=== PATIENT | female | born 1995 | race Caucasian/White ===

== ENCOUNTER 2017-05-18 19:17 | Observation (INO) ==
[2017-05-18 21:40] LABS: Bilirubin,Urine Negative (Negative); Blood,Urine Negative (Negative); Clarity,Urine Clear (Clear); Color,Urine Yellow (Yellow); Glucose,Urine (UA) Normal (Normal); Ketones,Urine Negative (Negative); Leukocyte Esterase,Urine Small (Negative); Nitrite,Urine Negative (Negative); PH,Urine 6.5 pH Units (5.0-8.0); Protein,Urine Negative (Neg-Trace); Specific Gravity,Urine 1.008 (1.010-1.025); Urobilinogen,Urine Normal (Normal)
[2017-05-18 21:43] LABS: Bacteria,Urine None Seen per hpf (None-Few); Hyaline Casts,Urine None Seen per lpf (None-Few); RBC,Urine 0-3 per hpf (0-3); Squamous Epithelial Cell,Urine Many per lpf (None-Few)
[2017-05-18 21:45] LABS: Amphetamine Screen,Urine Negative ng/mL (Cutoff=1000); Barbiturate Screen,Urine Negative ng/mL (Cutoff=200); Benzodiazepines Screen,Urine Negative ng/mL (Cutoff=200); Cannabinoid Screen,Urine Negative ng/mL (Cutoff = 50); Cocaine Screen,Urine Negative ng/mL (Cutoff= 300); Opiate Screen,Urine Negative ng/mL (Cutoff=300); Phencyclidine Screen,Urine Negative ng/mL (Cutoff=25)
--- NOTE | 2017-05-18 22:51 | OB/GYN Progress Note ---
Date of Encounter: 05/18/17 Time of Encounter: 22:00 - Assessment and Plan (1) False labor Current Visit: Yes Status: Acute SVE unchanged on repeat exam per RN. NST reactive. Discharge home with precautions. (2) 36 weeks gestation of Current Visit: No Status: Acute Subjective - Subjective Interval history: 21 year-old presenting at 36w4d with c/o contractions. She denies any other complaints. Good FM. Antepartum ROS: movement normal, contractions, no loss of fluid, no vaginal bleeding Objective - Vital Signs Vital Signs: Intake and Output 05/18/17 05/18/17 05/18/17 07:59 15:59 23:59 Other: Weight 74.5 kg Patient Weight 05/18/17 23:59 Weight 74.5 kg - Exam FHR: category 1 FHR comments: NST reactive Abdomen: Present: gravid Uterus: Present: normal Cervical dilation: 3-4 - Labs Labs: Abnormal lab results Ur Specific [place] 1.008 (1.010-1.025) L 05/18/17 19:48 Ur Leukocyte Esterase Small (Negative) H 05/18/17 19:48 Urine Microscopic WBC 5-15 per hpf (0-3) H 05/18/17 19:48 Ur Squamous Epith Cells Many per lpf (None-Few) H 05/18/17 19:48
== END 2017-05-18 22:13 | disposition home or self-care (01) ==
LOC: 1NENULAB
PROVIDERS: ADMIT Obstetrics & Gynecology; ATTEND Obstetrics & Gynecology

== ENCOUNTER 2017-05-25 22:05 | Observation (INO) ==
[2017-05-25 22:53] LABS: Bilirubin,Urine Negative (Negative); Blood,Urine Negative (Negative); Clarity,Urine Cloudy (Clear); Color,Urine Yellow (Yellow); Glucose,Urine (UA) Normal (Normal); Ketones,Urine Negative (Negative); Leukocyte Esterase,Urine Moderate (Negative); Nitrite,Urine Negative (Negative); PH,Urine 6.5 pH Units (5.0-8.0); Protein,Urine Negative (Neg-Trace); Specific Gravity,Urine 1.013 (1.010-1.025); Urobilinogen,Urine Normal (Normal)
[2017-05-25 22:54] LABS: Bacteria,Urine Few per hpf (None-Few); Hyaline Casts,Urine None Seen per lpf (None-Few); RBC,Urine 0-3 per hpf (0-3); Squamous Epithelial Cell,Urine Many per lpf (None-Few); WBC,Urine 30-50 per hpf (0-3)
--- NOTE | 2017-05-26 | OB/GYN Progress Note ---
Date of Encounter: 05/26/17 Time of Encounter: 23:45 - Assessment and Plan (1) 37 weeks gestation of Status: Resolved (2) Uterine contractions Status: Acute No change on serial cervical exams. Discharge home with when to return to triage and labor precautions Patient verbalizes understanding. Subjective - Subjective Principal diagnosis: Labor Evaluation Interval history: Ms. Green is a 21-year-old 001 at 37 weeks and 4 days who presents to labor and delivery for contractions throughout the day. She reports that contractions started when she woke up this a.m. and gradually worsened. Currently contractions occur every 4-5 minutes for the last hour. She reports that contractions goes towards her back. She reports good movement, denies leaking of fluid, vaginal bleeding. She admits to chronic headaches, denies visual disturbances, chest pain, shortness of breath, epigastric pain, lower extremity edema, dysuria. She receives care with Dr. Carmona., maternal blood type O-, history of labor on Tasha. Blood type: O- GBS: negative Hepatitis B Antigen: nonreactive HIV Antibody Ag: nonreactive T. Pallidum: negative Rubella IgG: positive Varicella IgG: positive Antepartum ROS: movement normal, contractions, no loss of fluid, no vaginal bleeding Objective - Vital Signs Vital Signs: Intake and Output 05/25/17 05/25/17 05/25/17 07:59 15:59 23:59 Other: Weight 75.9 kg Patient Weight 05/25/17 23:59 Weight 75.9 kg - Exam FHR: auscultation normal FHR comments: Baseline 135 Auscultation: bilateral: normal Abdomen: Present: soft, gravid Uterus: Present: normal, firm, other (nontender) Cervical dilation: 480 - Labs Labs: Abnormal lab results Urine Clarity Cloudy (Clear) A 05/25/17 22:49 Ur Leukocyte Esterase Moderate (Negative) H 05/25/17 22:49 Urine Microscopic WBC 30-50 per hpf (0-3) H 05/25/17 22:49 Ur Squamous Epith Cells Many per lpf (None-Few) H 05/25/17 22:49
== END 2017-05-26 00:39 | disposition home or self-care (01) ==
LOC: 1NENULAB
PROVIDERS: ADMIT Student in an Organized Health Care Education/Training Program; ATTEND Student in an Organized Health Care Education/Training Program

== ENCOUNTER 2017-05-31 16:22 | Observation (INO) ==
--- NOTE | 2017-05-31 23:38 | OB/GYN Progress Note ---
Date of Encounter: 05/31/17 Time of Encounter: 23:35 - Assessment and Plan (1) 38 weeks gestation of Status: Acute (2) NST (non-stress test) reactive Status: Acute (3) False labor Status: Acute SVE with no change after multiple exams. FHT reactive. Discharge home with precautions. Subjective - Subjective Interval history: 21 year-old female presenting at 38 weeks with c/o uterine contractions. She denies LOF or VB. Good FM. No other complaints. Antepartum ROS: movement normal, contractions, no loss of fluid, no vaginal bleeding Objective - Vital Signs Vital Signs: Intake and Output 05/31/17 05/31/17 05/31/17 07:59 15:59 23:59 Other: Weight 76 kg Patient Weight 05/31/17 23:59 Weight 76 kg - Exam FHR: category 1 FHR comments: NST reactive Abdomen: Present: soft, gravid. Absent: tenderness Uterus: Absent: tenderness Cervical dilation: 3-4 per clinical staff educator with no plant changer multiple exams
== END 2017-05-31 23:29 | disposition home or self-care (01) ==
LOC: 1NENULAB
PROVIDERS: ADMIT Obstetrics & Gynecology; ATTEND Obstetrics & Gynecology

== ENCOUNTER 2017-06-06 08:00 | Inpatient (IN) ==
--- NOTE | 2017-06-06 10:34 | Anesthesia Evaluation PreOp ---
Date of Encounter: 06/06/17 Time of Encounter: 10:31 - Past History Planned Operation: vaginal del, induction Cardiac History: Denies any Significant Hx Pulmonary History: Denies Any Significant HX TEMPLE MARKER History: Denies Any Significant HX Other Medical History: Denies Any Significant HX Anesthesia History: No Prior Anesthetic Complications, Past Anesthesia Alcohol Use: none Drug use: none Medications and Allergies Formula Tablet 1 tab PO DAILY 06/05/15 [History] Ondansetron ODT [Zofran ODT] 4 mg SL Q6HR #14 tab.rapdis 07/18/15 [Rx] Acetaminophen [Tylenol] 1 tab PO PRN PRN 05/18/17 [History] 3 Allergy/AdvReac Type Severity Reaction Status Date / Time No Known Allergies Allergy Verified 05/18/17 19:39 Anesthesia Exam - HEENT Pupil (Motor): Pupils equal Mallampati: II Teeth: Normal Oral Opening: Greater than 3 - TEMPLE MARKER LOC: Oriented TEMPLE MARKER Motor: Normal RUE, Normal LUE, Normal RLE, Normal LLE, Normal Face TEMPLE MARKER Sensory: Normal: RUE, LUE, RLE, LLE, Face - Cardiac Rhythm: Regular Murmur: None - Pulmonary Breath Sounds: bilateral Clear Respiratory Effort: Symmetrical Anesthesia Assess/Plan ASA Score: 2 Modified [place] Scale for Level of Consciousness: Cooperative, oriented, and tranquil Anesthetic Plan: General, Regional Monitoring Plan: Standard Monitors Recovery Plan: PACU
[2017-06-06] MEDS ORDERED: Epidural Premix (fent/bupiv) 110 ML EP SCH (10:45)
[2017-06-06] MEDS ORDERED: Naloxone 0.4 MG/ML INJ IVP PRN (11:00)
[2017-06-06] MEDS ORDERED: *HR* Nalbuphine 20 MG/ML AMPUL IVP PRN (11:00)
[2017-06-06] MEDS ORDERED: Metoclopramide 10 MG/2 ML VIAL IVP PRN (11:00)
[2017-06-06] MEDS ORDERED: Ondansetron 4 MG/2 ML VIAL IVP PRN (11:00)
[2017-06-06] MEDS ORDERED: Ringers Solution, Lactated 1,000 ML IVC SCH (11:00)
[2017-06-06] MEDS ORDERED: miSOPROStol 25 MCG TABLET PO PRN (11:00)
[2017-06-06] MEDS ORDERED: Lidocaine 1% 20 ML MDV ID PRN (11:00)
[2017-06-06] MEDS ORDERED: Famotidine 20 MG/2 ML VIAL IVP PRN (11:00)
[2017-06-06 11:21] LABS: Basophils # 0.1 K/mcL (0.0-0.2); Basophils % 0.6 %; Eosinophils # 0.3 K/mcL (0.0-0.6); Eosinophils % 2.7 %; Hematocrit 35.5 % (35.3-44.9); Hemoglobin 11.8 g/dL (11.5-15.4); Immature Granulocytes % 0.6 % (0-4); Lymphocytes # 1.7 K/mcL (0.6-4.6); Lymphocytes % 13.9 %; Mean Corpuscular HGB Conc 33.2 g/dL (31.6-35.5); Mean Corpuscular Volume 84.3 fL (83.0-100.0); Mean Platelet Volume 11.7 fL (9.4-12.4); Monocytes # 1.1 K/mcL (0.0-1.3); Monocytes % 8.6 %; Platelet Count 155 K/mcL (140-400); Red Blood Count 4.21 M/mcL (3.82-4.97); Red Cell Distribution Width 13.3 % (11.5-14.5); Segmented Neutrophils % 73.6 %
[2017-06-06] MEDS ORDERED: Oxytocin 20 units/ LR 1000 mL 20 UNIT/1,000 ML BAG IVC SCH ×3 (11:30→18:41)
[2017-06-06] MEDS ORDERED: Epidural Premix (fent/bupiv) 110 ML EP ONE (11:31)
--- NOTE | 2017-06-06 12:38 | Anesthesia Procedures ---
Date of Encounter: 06/06/17 Time of Encounter: 12:23 Procedures: Anesthesia - Epidural/Spinal Patient ID/Chart reviewed: Yes Patient examined: Yes OB Eval: Gestational age: term OB Eval: : 2 OB Eval: Hx Para: 1 OB Eval: Contractions: Non-stressed pattern Consent Obtained: Yes Supplemental Oxygen: None/Room Air Site Prep: Aseptic Technique, Sterile prep and drape, 0.5% Chlorhexidine/Alcohol Patient position: upright Local Anesthetic: Lidocaine 1% Amount of Local Anesthetic used: 2 Touhy Needle Gauge: 18 Touhy Needle Depth (cm): 6 Catheter Depth at Skin (cm): 10 Test Dose (1.5% Lido + Epi): Volume given (mls): 3 Test Dose Result: Negative Loading Dose: Other: 10ml from solution Loading Dose Administered: Thru Catheter Infusion Med: 0.125% Bupivacaine w/ 2 mcg/ml Fentanyl Infusion Rate (mls/hr): [address]: Tegaderm, Tape Interspace Used: L3-L4 Loss of Resistance (CELI): Yes (saline) Blood: No CSF: No Paresthesia: No Procedure: vss though out procedure, FHR stable per RN's
--- NOTE | 2017-06-06 13:08 | OB/GYN History & Physical ---
Date of Encounter: 06/06/17 Time of Encounter: 13:11 Assessment and Plan (1) Elective induction of labor planned Current visit: Yes Status: Acute Admit to L&D for elective IOL. EFM, TOCO Nubain prn pain, epidural as desired. Pitocin as able Anticipate (2) 39 weeks gestation of Current visit: Yes Status: Acute History of Present Illness Chief complaint: Labor HPI: Ms. Green is a 21 year old female at 39 2/7 weeks gestation presents to labor and delivery for induction of labor. Her has been uncomplicated. She reports good movement. She denies vaginal leaking of fluid, vaginal bleeding, cp, sob, dizziness, DISLA, changes in vision. Blood Type: O- RPR neg GBS neg Hep B non reactive Varicella immune Rubella immune Past Med Surg Social Fam HX - Past Medical History Medical history: no medical history Psychiatric history: no psych history - Past Surgical History Surgical History: appendectomy - Social History Smoking Status: Never smoker Smokeless Tobacco Status: No Alcohol use: none Drug use: none - Family History Mother Living Status: Still Living Hx Family Cardiac Disorders: No Hx Family Respiratory Disorders: No Hx Family Cancer: No Hx Family GI Disorders: No Hx Family Endocrine Disorder: No Hx Family Neuromuscular Disorders: No Hx Family Neurologic Disorders: No Hx Family HEENT Disorders: No Hx Family Autoimmune Disorders: No Father Adopted: No Family Member Ethnicity: Non- Living Status: Still Living Hx Family Cardiac Disorders: Yes (HTN) Hx Family Respiratory Disorders: Yes (asthma) Hx Family Cancer: No Hx Family GI Disorders: No Hx Family Endocrine Disorder: No Hx Family Neuromuscular Disorders: No Hx Family Neurologic Disorders: No Hx Family HEENT Disorders: No Hx Family Autoimmune Disorders: No Obstetrical History - Pregnancies : 2 Para: 1 Term: 1 : 0 Ab's: 0 Livin Medications and Allergies Formula Tablet 1 tab PO DAILY 06/05/15 [History] Ondansetron ODT [Zofran ODT] 4 mg SL Q6HR #14 tab.rapdis 07/18/15 [Rx] Acetaminophen [Tylenol] 1 tab PO PRN PRN 05/18/17 [History] 3 Allergy/AdvReac Type Severity Reaction Status Date / Time No Known Allergies Allergy Verified 05/18/17 19:39 Review of System OB All systems PM: reviewed and no additional remarkable complaints except as stated Exam - Constitutional Constitutional: well developed, well nourished, no acute distress, average body habitus - HEENT HEENT: EOMI, PERRL, Normocephaly, Mucus Membranes Moist - Neck Neck exam: full ROM, normal inspection, supple, trachea midline - Lungs Respiratory exam: CTAB - Cardiovascular Cardiovascular exam: RRR, +S1, +S2 - Abdomen Abdomen: Present: bowel sounds normal, gravid, non tender - Extremities Extremities exam: normal capillary refill, normal inspection, warm, radial pulses palpable and symmetrical Deep Tendon Reflex Grade: 2+ Normal - Cervix Dilation: 5 Effacement: 70 Station: -2 - Uterus Uterus exam: Present: normal size, normal contour Results Result Diagrams: 06/06/17 11:01 Abnormal lab results WBC 12.3 K/mcL (4.3-11.1) H 06/06/17 11:01 Neutrophils # 9.0 K/mcL (1.6-8.9) H 06/06/17 11:01 All other labs normal. - VTE Reasons for not Prescribing Prophylaxis: Treatment not Indicated - Low risk for VTE
[2017-06-06] MEDS ORDERED: Rho Immune Globulin 1,500 UNIT SYRINGE IM PRN ×2 (17:31→18:41)
[2017-06-06] MEDS ORDERED: Acetaminophen 325 MG TABLET PO PRN ×2 (17:31→18:41)
[2017-06-06] MEDS ORDERED: Measles/Mumps/Rubella Vacc 0.5 ML VIAL SQ PRN ×2 (17:31→18:41)
--- NOTE | 2017-06-06 17:36 | OB/GYN Procedure Note ---
Delivery - Delivery Date: 06/06/17 Provider: Tony Hsu Intrapartum events: none Delivery induction: misoprostol Delivery monitor: external FHT, external uterine Anesthesia: epidural Estimated Blood Loss: 100 - (s) Infant A Infant Delivery Date: 06/06/17 Infant Delivery Time: 17:16 Presentation: vertex Position: KIN Route of delivery: Gender: Male Viability: Viable Pounds: 9 Ounces: 5 at 1 minute: 8 at 5 mins: 9 Shoulder Dystocia: not encountered Specimens collected: cord blood Placenta: spontaneous Cord: 3 umbilical vessels - Repair Episiotomy: none Laceration Description: None - Complications Delivery complications: none - Disposition Mom disposition: stable in LDR disposition: stable in LDR - Comments Comments: Doing well s/p without complications. No lacerations. Spontaneous delivery of normal placenta intact without complications. EBL 100cc. Mother and recovered in LDR>
[2017-06-06] MEDS: Acetaminophen 325 MG TABLET PO PRN (20:40)
[2017-06-07] MEDS: Acetaminophen 325 MG TABLET PO PRN ×2 (04:43→11:03)
[2017-06-07 08:10] VITALS: BP 108/69
[2017-06-07] MEDS ORDERED: Prenatal Vit/FA 1 EACH TABLET PO SCH ×2 (09:00)
[2017-06-07] MEDS ORDERED: Ibuprofen 400 MG TABLET PO ONE (11:52)
--- NOTE | 2017-06-07 11:56 | Discharge Summary ---
Date of Encounter: 06/07/17 Time of Encounter: 11:52 - Discharge Diagnosis (1) Vaginal delivery Priority: Primary Status: Acute Comments: Pain not well controlled with PO tylenol - motrin ordered for now and rx to be sent with patient. VSS Tolerating regular diet Voiding independently Passing flatus but no BM yet Lochia light Discharge home today - Discharge Medications Prescriptions: Ibuprofen [Motrin] 600 mg PO Q6HR PRN #30 tab PRN Reason: Moderate Pain Docusate [Colace] 100 mg PO DAILY #30 capsule Home Medications: Formula Tablet 1 tab PO DAILY 06/05/15 [History] Acetaminophen [Tylenol] 1 tab PO PRN PRN 05/18/17 [History] Docusate [Colace] 100 mg PO DAILY #30 capsule 06/07/17 [Rx] Ibuprofen [Motrin] 600 mg PO Q6HR PRN #30 tab 06/07/17 [Rx] Allergies/Adverse Reactions: 3 Allergy/AdvReac Type Severity Reaction Status Date / Time No Known Allergies Allergy Verified 05/18/17 19:39 Data Procedures and tests throughout hospitalization: Laboratory Tests 06/06/17 06/06/17 11:01 18:05 WBC 12.3 H RBC 4.21 Hgb 11.8 Hct 35.5 MCV 84.3 MCH 28.0 MCHC 33.2 RDW 13.3 Plt Count 155 MPV 11.7 Immature Gran % 0.6 Seg Neutrophils % 73.6 Lymphocytes % 13.9 Monocytes % 8.6 Eosinophils % 2.7 Basophils % 0.6 Neutrophils # 9.0 H Lymphocytes # 1.7 Monocytes # 1.1 Eosinophils # 0.3 Basophils # 0.1 Baby's Blood Type O RH NEGATIVE Mother's Blood Type O RH NEGATIVE Rhogam Indicated NO Labs on day of discharge: Labs from last 24 hours 06/06/17 18:05 Baby's Blood Type O RH NEGATIVE Mother's Blood Type O RH NEGATIVE Rhogam Indicated NO Date of admission: 06/06/17 08:28 Primary care physician: Carolina Warner CNP Consults: 06/06/17 17:32 Consult to Staff Writer [CONS] Routine Comment: Vaginal delivery, consult needed Discharging clinician: Grecia Allen Anticipated date of discharge: 06/07/17 - Patient Status Disposition: Home, Self-Care Condition: Good Functional capacity at discharge: independent ambulation Overall status at discharge: patient is progressing back to baseline - Discharge Instructions Follow Up With: Carolina Warner CNP [Primary Care Provider] - Power Carmona MD [Partnered Physician] - - Diet and Activity Activity: increase activity as tolerated Diet: regular diet Hospital Course Reason for admission: induction of labor, IUP at term Delivery: Episiotomy: none Laceration: none Other procedures: none complications: none Discharge diagnosis: IUP at term delivered [place] baby: male Time Attestation: Total time spent providing and/or coordinating discharge services: Time Spent: Less than 30 minutes Exam - Constitutional Vitals: Temp Pulse Resp BP Pulse Ox 97.9 F 65 16 108/69 98 06/07/17 08:09 06/07/17 08:09 06/07/17 08:09 06/07/17 08:09 06/07/17 08:09 General appearance IM: A&O X 3 - Respiratory Respiratory exam: Present: CTAB - Cardiovascular Cardiovascular exam IM: Present: RRR, +S1, +S2 - GI/Abdominal GI/Abdominal exam IM: normal bowel sounds - Rectal Rectal exam: deferred - Uterine Tone: Firm Uterus Position: At Umbilicus, Midline - Extremities Exam Extremities exam IM: Present: normal inspection - Neurological Exam Neurological exam: alert, oriented X3 - Psychiatric Additional comments: Pt feeling mentally well today. S/sx of PPD reviewed with patient and family.
== END 2017-06-07 19:00 | disposition home or self-care (01) | DRG 775 ==
LOC: 1NENULAB 08:28 → 1NENUOBS 20:34
PROVIDERS: ADMIT Obstetrics & Gynecology; ATTEND Obstetrics & Gynecology

== ENCOUNTER 2020-08-01 06:14 | Inpatient (IN) ==
[2020-08-01] MEDS ORDERED: Metoclopramide 10 MG/2 ML VIAL IVP PRN (06:19)
[2020-08-01] MEDS ORDERED: Lidocaine 1% 20 ML MDV ID PRN (06:19)
[2020-08-01] MEDS ORDERED: *HR* Nalbuphine 10 MG/ML AMPUL IV PRN (06:19)
[2020-08-01] MEDS ORDERED: Ondansetron 4 MG/2 ML VIAL IVP PRN ×2 (06:19→08:54)
[2020-08-01] MEDS ORDERED: Famotidine 20 MG/2 ML VIAL IVP PRN (06:19)
[2020-08-01] MEDS ORDERED: Naloxone 0.4 MG/ML INJ IVP PRN ×2 (06:19→08:54)
[2020-08-01] MEDS ORDERED: Azithromycin 500 MG in 0.9 % Sodium Chloride 250 ML IVPB ONE (06:19)
[2020-08-01] MEDS ORDERED: miSOPROStoL 25 MCG TABLET PO PRN (06:23)
[2020-08-01] MEDS ORDERED: Ringers Solution, Lactated 1,000 ML IVC SCH (06:30)
[2020-08-01 07:27] LABS: Basophils # 0.1 K/mcL (0.0-0.2); Basophils % 0.6 %; Eosinophils # 0.2 K/mcL (0.0-0.6); Eosinophils % 2.1 %; Hematocrit 37.3 % (35.3-44.9); Hemoglobin 12.3 g/dL (11.5-15.4); Immature Granulocytes % 0.5 % (0-4); Lymphocytes # 1.9 K/mcL (0.6-4.6); Lymphocytes % 18.3 %; Mean Corpuscular Hemoglobin 27.4 pg (28.0-33.3); Mean Corpuscular Volume 83.1 fL (83.0-100.0); Mean Platelet Volume 11.6 fL (9.4-12.4); Monocytes # 0.9 K/mcL (0.0-1.3); Monocytes % 8.6 %; Neutrophils # 7.2 K/mcL (1.6-8.9); Platelet Count 202 K/mcL (140-400); Red Blood Count 4.49 M/mcL (3.82-4.97); Red Cell Distribution Width 13.9 % (11.5-14.5); Segmented Neutrophils % 69.9 %; White Blood Count 10.2 K/mcL (4.3-11.1)
[2020-08-01 08:00] LABS: Adenovirus Not Detected (Not Detect); Bordetella Pertussis Not Detected (Not Detect); Chlamydophila pneumoniae Not Detected (Not Detect); Coronavirus 229E Not Detected (Not Detect); Coronavirus HKU1 Not Detected (Not Detect); Coronavirus NL63 Not Detected (Not Detect); Coronavirus OC43 Not Detected (Not Detect); Human Metapneumovirus Not Detected (Not Detect); Human Rhinovirus/Enterovirus Not Detected (Not Detect); Influenza A Subtype 2009 H1 Not Detected (Not Detect); Influenza B Not Detected (Not Detect); Mycoplasma pneumoniae Not Detected (Not Detect); Parainfluenza Virus 1 Not Detected (Not Detect); Parainfluenza Virus 2 Not Detected (Not Detect); Parainfluenza Virus 3 Not Detected (Not Detect); Parainfluenza Virus 4 Not Detected (Not Detect); Respiratory Syncytial Virus Not Detected (Not Detect); SARS-CoV-2 Not Detected (Not Detect)
[2020-08-01 08:13] LABS: Amphetamine Screen,Urine Negative ng/mL (Cutoff=1000); Barbiturate Screen,Urine Negative ng/mL (Cutoff=200); Benzodiazepines Screen,Urine Negative ng/mL (Cutoff=200); Cannabinoid Screen,Urine Negative ng/mL (Cutoff = 50); Cocaine Screen,Urine Negative ng/mL (Cutoff= 300); Opiate Screen,Urine Negative ng/mL (Cutoff=300); Phencyclidine Screen,Urine Negative ng/mL (Cutoff=25)
[2020-08-01] MEDS ORDERED: EPHEDrine 50 MG/ML VIAL IVP PRN (08:54)
[2020-08-01] MEDS ORDERED: Ropivacaine/PF 0.2% 20 ML VIAL EP ONE (08:54)
[2020-08-01] MEDS ORDERED: Epidural Premix (fent/bupiv) 110 ML EP SCH (09:00)
[2020-08-01] MEDS ORDERED: Ropivacaine/PF 0.2% 20 ML VIAL ONE (09:05)
[2020-08-01] MEDS ORDERED: Oxytocin 20 units/ LR 1000 mL 20 UNIT/1,000 ML BAG IVC SCH ×2 (10:45→17:40)
[2020-08-01] MEDS ORDERED: Oxytocin 20 units/ LR 1000 mL 20 UNIT/1,000 ML BAG IVC ONE (10:46)
[2020-08-01] MEDS ORDERED: Benzocaine/Menthol 56 GM AEROSOL SPRAY TP PRN (17:40)
[2020-08-01] MEDS ORDERED: Lanolin 7 G OINT...G. TP PRN (17:40)
[2020-08-01] MEDS ORDERED: Acetaminophen 325 MG TABLET PO PRN (17:40)
[2020-08-01] MEDS: Ibuprofen 600 MG TABLET PO PRN (20:13)
[2020-08-02] MEDS: Ibuprofen 600 MG TABLET PO PRN ×2 (02:36→08:40)
[2020-08-02 07:01] LABS: Basophils # 0.1 K/mcL (0.0-0.2); Basophils % 0.5 %; Eosinophils # 0.3 K/mcL (0.0-0.6); Eosinophils % 2.6 %; Hemoglobin 11.3 g/dL (11.5-15.4); Immature Granulocytes % 0.6 % (0-4); Lymphocytes # 1.7 K/mcL (0.6-4.6); Lymphocytes % 16.5 %; Mean Corpuscular HGB Conc 32.3 g/dL (31.6-35.5); Mean Corpuscular Hemoglobin 27.6 pg (28.0-33.3); Mean Corpuscular Volume 85.4 fL (83.0-100.0); Mean Platelet Volume 11.7 fL (9.4-12.4); Monocytes % 9.3 %; Neutrophils # 7.3 K/mcL (1.6-8.9); Platelet Count 154 K/mcL (140-400); Red Cell Distribution Width 14.2 % (11.5-14.5); Segmented Neutrophils % 70.5 %; White Blood Count 10.3 K/mcL (4.3-11.1)
[2020-08-02 07:17] LABS: Alanine Aminotransferase 7 Units/L (7-52); Albumin 3.1 g/dL (3.5-5.7); Albumin/Globulin Ratio 1.1 (1.1-2.2); Alkaline Phosphatase 140 Units/L (34-104); Aspartate Amino Transferase 11 Units/L (13-39); Bilirubin,Indirect 0.2 mg/dL (0.0-1.0); Bilirubin,Total 0.2 mg/dL (0.3-1.0); Globulin 2.7 g/dL (2.4-3.5); Total Protein 5.8 g/dL (6.4-8.9); eGFR For African Americans > 60 (> 60); eGFR For Non-African Americans > 60 (> 60)
[2020-08-02 08:09] VITALS: BP 115/74
[2020-08-02] MEDS ORDERED: Prenatal Vit/FA 1 EACH TABLET PO SCH (09:00)
[2020-08-02] MEDS ORDERED: Rho Immune Globulin 1,500 UNIT SYRINGE IM ONE (09:06)
== END 2020-08-02 17:33 | disposition home or self-care (01) | DRG 807 ==
LOC: 1NENULAB 06:14 → 1NENUOBS 17:10
PROVIDERS: ADMIT Obstetrics & Gynecology; ATTEND Obstetrics & Gynecology

== ENCOUNTER → 2021-11-09 07:34 | Observation (INO) ==
[2021-11-08 19:43] LABS: Basophils % 0.2 %; Eosinophils # 0.1 K/mcL (0.0-0.6); Eosinophils % 0.7 %; Hematocrit 36.1 % (35.3-44.9); Immature Granulocytes % 1.3 % (0-4); Lymphocytes % 15.9 %; Mean Corpuscular HGB Conc 33.2 g/dL (31.6-35.5); Mean Corpuscular Hemoglobin 29.1 pg (28.0-33.3); Mean Corpuscular Volume 87.6 fL (83.0-100.0); Mean Platelet Volume 11.4 fL (9.4-12.4); Monocytes # 0.9 K/mcL (0.0-1.3); Monocytes % 7.4 %; Neutrophils # 9.1 K/mcL (1.6-8.9); Platelet Count 157 K/mcL (140-400); Red Blood Count 4.12 M/mcL (3.82-4.97); Red Cell Distribution Width 13.9 % (11.5-14.5); Segmented Neutrophils % 74.5 %; White Blood Count 12.2 K/mcL (4.3-11.1)
[2021-11-08 19:49] LABS: Bilirubin,Urine Negative (Negative); Blood,Urine Negative (Negative); Clarity,Urine Clear (Clear); Color,Urine Colorless (Yellow); Glucose,Urine (UA) Normal (Normal); Ketones,Urine Negative (Negative); Leukocyte Esterase,Urine Moderate (Negative); Mucus,Urine Few per lpf (None-Few); Nitrite,Urine Negative (Negative); PH,Urine 6.5 pH Units (5.0-8.0); Protein,Urine Negative (Neg-Trace); RBC,Urine 0-3 per hpf (0-3); Specific Gravity,Urine 1.008 (1.010-1.025); Squamous Epithelial Cell,Urine Few per hpf (None-Few); Urobilinogen,Urine Normal (Normal); WBC,Urine 0-3 per hpf (0-3)
[2021-11-08 19:51] LABS: Prothrombin Time 11.5 Seconds (9.4-12.1)
[2021-11-08 19:53] LABS: Activated Partial Thrombo Time 31.2 Seconds (26.0-36.0)
[2021-11-08 21:07] LABS: Candida DNA DETECTED (Not Detect); Gardnerella DNA DETECTED (Not Detect); Trichomonas DNA Not Detected (Not Detect)
[~2021-11-09 07:34] MED LIST: Betamethasone Acet/SodPhos 30 MG/5 ML VIAL IM SCH; Ringers Solution, Lactated 1,000 ML IVC SCH
== END | disposition home or self-care (01) ==
LOC: 1NENULAB
PROVIDERS: ADMIT Student in an Organized Health Care Education/Training Program; ATTEND Student in an Organized Health Care Education/Training Program

== ENCOUNTER → 2021-11-09 20:03 | Observation (INO) ==
[~2021-11-09 20:03] MED LIST changes: -Ringers Solution, Lactated 1,000 ML IVC SCH
== END | disposition home or self-care (01) ==
LOC: 1NENULAB
PROVIDERS: ADMIT Advanced Practice Midwife; ATTEND Advanced Practice Midwife